=== PATIENT | female | born 1960 ===

== ENCOUNTER → 2021-04-02 11:39 | Outpatient (CLI) | payer OTHER, MEDICAID, SELFPAY ==
[2021-04-02 12:34] LABS: COVID19 -Nasal RAPID POSITIVE (Negative)
== END ==
PROVIDERS: Referring Provider Nurse Practitioner Family; Visit Provider Nurse Practitioner Family
DX: Z01.812 Encounter for preprocedural laboratory examination (principal); U07.1 COVID-19; Z20.822 Contact with and (suspected) exposure to COVID-19
CPT/HCPCS: 87635; C9803

== ENCOUNTER → 2021-07-14 15:56 | Outpatient (CLI) | payer OTHER, MEDICAID, SELFPAY ==
[2021-07-14 17:41] LABS: COVID19 -Nasal RAPID Negative (Negative)
== END ==
PROVIDERS: Visit Provider Family Medicine Sleep Medicine
DX: Z20.822 Contact with and (suspected) exposure to COVID-19 (principal)
CPT/HCPCS: 87635; C9803

== ENCOUNTER → 2021-07-15 10:41 | Outpatient (CLI) | payer OTHER, MEDICAID, SELFPAY ==
--- NOTE | 2021-07-15 10:44 | DI.NM.S_ITS ---
PROCEDURE: NM UMESH PERF SPECT R&S PHARM Rest and pharmacological stress myocardial perfusion SPECT with gated imaging and ejection fraction RADIOPHARMACEUTICAL: 23.3 mCi Tc-99m tetrafosmin IV at rest and 26.3 mCi Tc-99m tetrafosmin IV at peak effect of pharmacological stress. [id number] was performed. INDICATIONS: Atherosclerotic heart disease TECHNIQUE: Radiopharmaceutical was injected at peak stress test, and also at rest. SPECT images were obtained. SPECT myocardial perfusion images were displayed in short axis, horizontal long axis, and vertical long axis views. Gated images were reviewed using [employer] software. COMPARISON: None. CARDIAC STRESS: A pharmacologic stress test was performed under the supervision of an attending staff, using an infusion of lexiscan 0.4mg IV X1. Hemodynamic data: There is normal blood pressure and heart rate response to pharmacologic stress. Symptoms: The patient denied anginal chest pain. Aminophylline: none EKG: No diagnostic changes of ischemia; no ectopy. FINDINGS: Raw data: There is good myocardial uptake of radiotracer. No significant motion artifacts. Ipfl-jf-tbfck ratio is 0.29 (normal is less than 0.38 for tetrafosmin tracer). Left ventricle function: Gated images demonstrate normal left ventricular wall thickening. No segmental wall motion abnormalities. No transient ischemic dilation; TID is 1.09 (normal less than 1.3). Left ventricle resting end diastolic volume is 125 mL. Left ventricle stress ejection fraction is 59%; normal range is above 45%. Myocardial perfusion: There is a fixed mildly intense defect at the apex that resolves with prone imaging, suggesting apical thinning defect than prior infarction. No ischemia. IMPRESSION: Low risk, probably normal pharmaceutical nuclear stress test 1) There is a fixed mildly intense defect at the apex that resolves with prone imaging, suggesting apical thinning defect than prior infarction. No ischemia. 2) Normal left ventricular size, wall motion, and systolic function (EF post stress 59%). 3) No ECG evidence of ischemia. 4) No angina during the study. 5) No prior nuclear stress test available for comparison. Dictated by: Jocelynn Can MD on 07/17/2021 at 12:25 Approved by: Jocelynn Can MD on 07/17/2021 at 12:28
--- NOTE | 2021-07-16 11:47 | PM.TREADMILL ---
Cardiac Stress Test Report Referral & Results Date Patient Seen: 07/16/21 Time Patient Seen: 11:47 Requesting provider: Carlitos Mendoza Indication: Coronary artery disease Rest ECG: Sinus rhythm Procedure Note: After Lexiscan injection, had minimal dyspnea, no chest discomfort After Lexiscan injection, had no significant ST changes Rare PVC Impression: Normal Lexiscan stress test Please note: Actual ECG tracings can be found in the PACS system.
== END ==
PROVIDERS: Referring Provider Internal Medicine Cardiovascular Disease; Visit Provider Internal Medicine Cardiovascular Disease
DX: I25.10 Atherosclerotic heart disease of native coronary artery without angina pectoris (principal)
CPT/HCPCS: 78452; 93017; A9502; J2785